=== PATIENT | female | born 1945 | race Caucasian/White ===

== ENCOUNTER 2017-10-07 10:32 | Outpatient (CLI) | payer MEDICARE | END 2017-10-07 10:33 | disposition home or self-care (01) | LOC: BICMAMMO 10:32 | PROVIDERS: ATTEND Obstetrics & Gynecology | DX: Z12.31 Encounter for screening mammogram for malignant neoplasm of breast (principal) | CPT/HCPCS: 77063; 77067 ==

== ENCOUNTER 2018-11-18 10:35 | Outpatient (CLI) | payer MEDICARE ==
--- NOTE | 2018-11-18 11:23 | RAD ---
LUMBAR SPINE 3 VIEWS: HISTORY: Sacroiliac, lower back pain. FINDINGS/IMPRESSION: There are mild degenerative changes in the lower lumbar spine. No fracture, subluxation, or bony monica truction is seen. The sacroiliac joints also demonstrate degenerative changes. There are vascular c alcifications. POS: [facility]
== END 2018-11-18 10:36 | disposition home or self-care (01) ==
LOC: RAD 10:35
PROVIDERS: ATTEND Family Medicine
DX: M46.1 Sacroiliitis, not elsewhere classified (principal); M47.816 Spondylosis without myelopathy or radiculopathy, lumbar region; I70.90 Unspecified atherosclerosis
CPT/HCPCS: 72100

== ENCOUNTER 2018-12-29 12:48 | Outpatient (CLI) | payer MEDICARE ==
--- NOTE | 2018-12-29 13:01 | RAD ---
EXAM: Chest 2 views: HISTORY: Left mid back pain COMPARISON: 03/14/2013 FINDINGS: There is a normal-sized cardiomediastinal silhouette. A cardiac monitoring device projects over the left chest wall. There is no evidence of consolidation, mass, or pleural effusion. The bones are unremarkable. IMPRESSION: No evidence of acute cardiopulmonary disease
== END 2018-12-29 12:49 | disposition home or self-care (01) ==
LOC: BICRAD 12:48
PROVIDERS: ATTEND Physician Assistant Medical
DX: M54.9 Dorsalgia, unspecified (principal)
CPT/HCPCS: 36415; 71046; 80053; 82150; 83690; 85025; 87086

== ENCOUNTER 2019-01-04 10:01 | Outpatient (CLI) | payer MEDICARE ==
--- NOTE | 2019-01-04 13:03 | ULT ---
RIGHT UPPER QUADRANT ULTRASOUND: HISTORY: Nausea. Diarrhea. FINDINGS: The liver demonstrates a homogeneous echotexture without focal mass or intrahepatic ductal dilatation . No gallstones, gallbladder wall thickening, or pericholecystic fluid is seen. The right kidney is normal. The common duct measures 2 mm in diameter. The visualized portions of the pancreas are unr emarkable. IMPRESSION: No significant abnormalities are identified. POS: [facility]
== END 2019-01-04 10:02 | disposition home or self-care (01) ==
LOC: ULT 10:01
PROVIDERS: ATTEND Physician Assistant Medical
DX: R19.7 Diarrhea, unspecified (principal); R11.0 Nausea; M54.9 Dorsalgia, unspecified
CPT/HCPCS: 76705

== ENCOUNTER 2020-08-15 12:27 | Outpatient (CLI) | payer MEDICARE | END 2020-08-15 12:28 | disposition home or self-care (01) | LOC: BICRAD 12:27 | PROVIDERS: ATTEND Internal Medicine Rheumatology | DX: M19.211 Secondary osteoarthritis, right shoulder (principal) ==

== ENCOUNTER 2020-08-28 10:03 | Outpatient (CLI) | payer MEDICARE | END 2020-08-28 10:04 | disposition home or self-care (01) | LOC: BICMAMMO 10:03 | PROVIDERS: ATTEND Family Medicine | DX: Z12.31 Encounter for screening mammogram for malignant neoplasm of breast (principal) | CPT/HCPCS: 77063; 77067 ==

== ENCOUNTER 2020-09-07 09:57 | Outpatient (CLI) | payer MEDICARE | END 2020-09-07 09:58 | disposition home or self-care (01) | LOC: BICMAMMO 09:57 | PROVIDERS: ATTEND Family Medicine | DX: R92.2 Inconclusive mammogram (principal) | CPT/HCPCS: 77065; G0279 ==

== ENCOUNTER 2020-09-28 10:35 | Outpatient (CLI) | payer MEDICARE | END 2020-09-28 10:36 | disposition home or self-care (01) | LOC: BICMAMMO 10:35 | PROVIDERS: ATTEND Internal Medicine Rheumatology | DX: Z13.820 Encounter for screening for osteoporosis (principal); Z78.0 Asymptomatic menopausal state | CPT/HCPCS: 77080 ==

== ENCOUNTER 2021-08-28 09:46 | Outpatient (CLI) | payer MEDICARE | END 2021-08-28 09:47 | disposition home or self-care (01) | LOC: TBSIIMAG 09:46 | PROVIDERS: ATTEND Neurological Surgery | DX: S22.081D Stable burst fracture of T11-T12 vertebra, subsequent encounter for fracture with routine healing (principal) | CPT/HCPCS: 72070 ==

== ENCOUNTER 2021-09-28 16:04 | Outpatient (CLI) | payer MEDICARE | END 2021-09-28 16:05 | disposition home or self-care (01) | LOC: BICCT 16:04 | PROVIDERS: ATTEND Neurological Surgery | DX: S22.081D Stable burst fracture of T11-T12 vertebra, subsequent encounter for fracture with routine healing (principal); S32.009D Unspecified fracture of unspecified lumbar vertebra, subsequent encounter for fracture with routine healing; M48.04 Spinal stenosis, thoracic region | CPT/HCPCS: 72128 ==

== ENCOUNTER 2021-10-23 13:47 | Outpatient (CLI) | payer MEDICARE | END 2021-10-23 13:48 | disposition home or self-care (01) | LOC: BICRAD 13:47 | PROVIDERS: ATTEND Neurological Surgery | DX: S22.081A Stable burst fracture of T11-T12 vertebra, initial encounter for closed fracture (principal) | CPT/HCPCS: 72072 ==

== ENCOUNTER 2021-11-02 10:13 | Outpatient (CLI) | payer MEDICARE | END 2021-11-02 10:14 | disposition home or self-care (01) | LOC: BICMAMMO 10:13 | PROVIDERS: ATTEND Family Medicine | DX: Z12.31 Encounter for screening mammogram for malignant neoplasm of breast (principal); M81.0 Age-related osteoporosis without current pathological fracture; M85.851 Other specified disorders of bone density and structure, right thigh | CPT/HCPCS: 77063; 77067; 77080 ==

== ENCOUNTER 2021-11-06 12:32 | Outpatient (CLI) | payer MEDICARE | END 2021-11-06 12:33 | disposition home or self-care (01) | LOC: CT 12:32 | PROVIDERS: ATTEND Neurological Surgery | DX: S22.081A Stable burst fracture of T11-T12 vertebra, initial encounter for closed fracture (principal); S32.011A Stable burst fracture of first lumbar vertebra, initial encounter for closed fracture | CPT/HCPCS: 72128 ==

== ENCOUNTER 2022-06-17 09:39 | Outpatient (CLI) | payer MEDICARE | END 2022-06-17 09:40 | disposition home or self-care (01) | LOC: RAD 09:39 | PROVIDERS: ATTEND Family Medicine | DX: R13.19 Other dysphagia (principal); R13.14 Dysphagia, pharyngoesophageal phase | CPT/HCPCS: 74220 ==

== ENCOUNTER 2022-07-25 12:30 | Outpatient (CLI) | payer MEDICARE | END 2022-07-25 12:31 | disposition home or self-care (01) | LOC: PET 12:30 | PROVIDERS: ATTEND Internal Medicine Hematology & Oncology | DX: C15.5 Malignant neoplasm of lower third of esophagus (principal) | CPT/HCPCS: 78815; A9552 ==

== ENCOUNTER 2022-12-06 09:03 | Outpatient (CLI) | payer MEDICARE ==
[2022-12-06] MEDS ORDERED: Iopamidol 370 76% 100 ML VIAL ONE (10:45)
== END 2022-12-06 09:04 | disposition home or self-care (01) ==
LOC: CT 09:03
PROVIDERS: ATTEND Physician Assistant
DX: C15.9 Malignant neoplasm of esophagus, unspecified (principal); K22.9 Disease of esophagus, unspecified; S22.081A Stable burst fracture of T11-T12 vertebra, initial encounter for closed fracture; J98.4 Other disorders of lung
CPT/HCPCS: 36415; 71260; 74177; 80053; 82565; 85025; 85610; 85730; 93005; 93010; 93306

== ENCOUNTER 2022-12-23 11:07 | Outpatient (CLI) | payer MEDICARE | END 2022-12-23 11:08 | disposition home or self-care (01) | LOC: RAD 11:07 | PROVIDERS: ATTEND Internal Medicine Hematology & Oncology | DX: R06.02 Shortness of breath (principal); R05.9 Cough, unspecified; R06.2 Wheezing; C15.5 Malignant neoplasm of lower third of esophagus; J90 Pleural effusion, not elsewhere classified; Z98.890 Other specified postprocedural states | CPT/HCPCS: 71046 ==

== ENCOUNTER 2023-01-23 08:39 | Emergency (ER) | payer MEDICARE ==
[2023-01-23] MEDS ORDERED: Ondansetron PF 4 MG/2 ML Vial ONE (09:20)
== END 2023-01-23 10:06 | disposition home or self-care (01) ==
LOC: ERS 08:39
DX: R11.10 Vomiting, unspecified (principal); E86.0 Dehydration; Z87.891 Personal history of nicotine dependence
CPT/HCPCS: 93005; 96361; 96374; J2405

== ENCOUNTER 2023-01-29 08:38 | Emergency (ER) | payer MEDICARE ==
[2023-01-29] MEDS ORDERED: Ondansetron PF 4 MG/2 ML Vial ONE (09:17)
[2023-01-29 09:31] LABS: #Basophils 0.1 thou/uL (0.0-0.2); #Eosinphils 0.1 thou/uL (0.0-0.7); #Monocytes 0.7 thou/uL (0.11-0.59); #Neutrophils 20.1 thou/uL (1.40-6.50); %Basophils 0.3 % (0.0-1.0); %Eosinophils 0.5 % (0.0-10.0); %Monocytes 3.2 % (0.0-10.0); %Neutrophils 90.5 % (42.0-75.0); Hemoglobin 12.8 g/dL (12.0-16.0); Mean Corpuscular HGB CONC 32.8 g/dL (32.0-36.0); Mean Corpuscular Hemoglobin 29.5 pg (27.0-31.0); Mean Corpuscular Volume 89.9 fl (78.0-98.0); Mean Platelet Volume 11.2 fL (7.4-10.4); Platelet Count 375 10x3/uL (130-400); RBC Distribution Width 13.8 % (11.5-14.5); Red Blood Cell (RBC) Count 4.34 mill/uL (4.20-5.40); White Blood Cell (WBC) Count 22.2 10x3/uL (4.8-10.8)
[2023-01-29 09:55] LABS: ALT (SGPT) 15 U/L (8-55); AST (SGOT) 18 U/L (5-34); Albumin 4.3 g/dL (3.4-4.8); Alkaline Phosphatase 100 U/L (40-110); Anion Gap 18 mmol/L (10-20); BUN (Urea Nitrogen) 17 mg/dL (9.8-20.1); Bilirubin, Total 0.4 mg/dL (0.2-1.2); Calc. Creatinine Clearance 0 mL/min (70-130); Calcium 9.9 mg/dL (7.8-10.44); Carbon Dioxide 22 mmol/L (23-31); Chloride 102 mmol/L (98-107); Estimated GFR 58; Globulin 3.4 g/dL (2.4-3.5); Glucose 130 mg/dL (83-110); Lipase 24 U/L (8-78); Potassium 2.8 mmol/L (3.5-5.1); Protein, Total 7.7 g/dL (5.8-8.1); Sodium 139 mmol/L (136-145)
[2023-01-29] MEDS ORDERED: Iopamidol-370 76% 500 ML MDV (1 ML CHARGE) ONE (09:57)
[2023-01-29] MEDS ORDERED: Morphine 4 MG/ML VIAL ONE (10:39)
[2023-01-29] MEDS ORDERED: LevoFLOXacin 500 MG TAB ONE (11:57)
[2023-01-29] MEDS ORDERED: LevoFLOXacin 250 MG TAB ONE (11:57)
[2023-01-29 12:21] LABS: Bacteria/HPF None Seen HPF (None Seen); Bilirubin Negative (Negative); Blood, Urine Negative (Negative); CAUTI Indications for Culture Pelvic or flank pain; Clarity Clear (Clear); Glucose, Urine (Dipstick) Normal (Negative); Ketone, Urine Trace mg/dL (Negative); Leukocyte Negative Leu/uL (Negative); Nitrite Negative (Negative); Protein, Urine (Dipstick) Negative (Neg-Trace); RBC/HPF 0-3 HPF (0-3); Specific Gravity, Urine 1.027 (1.002-1.036); Squamous Epithelial None Seen HPF (0-3); Urobilinogen Normal mg/dL (Less than 2); WBC/HPF 0-3 HPF (0-3); pH, Urine 6.5 (5.0-9.0)
[2023-01-29 12:23] LABS: Urine Culture Reflex No No
== END 2023-01-29 12:39 | disposition home or self-care (01) ==
LOC: ERS 08:38
DX: K52.9 Noninfective gastroenteritis and colitis, unspecified (principal); Z87.891 Personal history of nicotine dependence
CPT/HCPCS: 36415; 74177; 80053; 81001; 83605; 83690; 85025; 87040; 87086; 96361; 96374; 96375; J2270; J2405; Q9967

== ENCOUNTER 2023-03-06 15:11 | Outpatient (CLI) | payer MEDICARE | END 2023-03-06 15:12 | disposition home or self-care (01) | LOC: BICRAD 15:11 | PROVIDERS: ATTEND Physician Assistant | DX: S22.069A Unspecified fracture of T7-T8 vertebra, initial encounter for closed fracture (principal); M43.8X4 Other specified deforming dorsopathies, thoracic region | CPT/HCPCS: 72070 ==

== ENCOUNTER 2023-03-18 13:11 | Emergency (ER) | payer MEDICARE ==
[~2023-03-18 13:11] MED LIST: GASTROGRAFIN 30 ML BOT ONE
== END 2023-03-18 16:57 | disposition home or self-care (01) ==
LOC: ERS 13:11
DX: K94.23 Gastrostomy malfunction (principal); Z87.891 Personal history of nicotine dependence
CPT/HCPCS: 74018; Q9963

== ENCOUNTER 2023-06-15 12:14 | Emergency (ER) | payer MEDICARE ==
[2023-06-15 13:04] LABS: #Basophils 0.1 thou/uL (0.0-0.2); #Eosinphils 0.2 thou/uL (0.0-0.7); #Monocytes 0.7 thou/uL (0.11-0.59); #Neutrophils 6.1 thou/uL (1.40-6.50); %Basophils 0.8 % (0.0-1.0); %Eosinophils 2.5 % (0.0-10.0); %Lymphocytes 16.7 % (21.0-51.0); %Neutrophils 71.5 % (42.0-75.0); Hematocrit 35.6 % (36.0-47.0); Hemoglobin 11.9 g/dL (12.0-16.0); Mean Corpuscular HGB CONC 33.4 g/dL (32.0-36.0); Mean Corpuscular Hemoglobin 30.2 pg (27.0-31.0); Mean Corpuscular Volume 90.4 fl (78.0-98.0); Mean Platelet Volume 10.6 fL (7.4-10.4); Platelet Count 252 10x3/uL (130-400); RBC Distribution Width 15.5 % (11.5-14.5); Red Blood Cell (RBC) Count 3.94 mill/uL (4.20-5.40); White Blood Cell (WBC) Count 8.5 10x3/uL (4.8-10.8)
[2023-06-15 13:25] LABS: ALT (SGPT) 16 U/L (8-55); AST (SGOT) 21 U/L (5-34); Alkaline Phosphatase 82 U/L (40-110); Anion Gap 15 mmol/L (10-20); BUN (Urea Nitrogen) 25 mg/dL (9.8-20.1); Bilirubin, Total 0.7 mg/dL (0.2-1.2); Calc. Creatinine Clearance 0 mL/min (70-130); Calcium 9.3 mg/dL (7.8-10.44); Carbon Dioxide 17 mmol/L (23-31); Chloride 104 mmol/L (98-107); Estimated GFR 37; Globulin 2.9 g/dL (2.4-3.5); Glucose 97 mg/dL (83-110); Protein, Total 6.9 g/dL (5.8-8.1); Sodium 133 mmol/L (136-145)
[2023-06-15] MEDS ORDERED: Morphine 4 MG/ML VIAL ONE (13:29)
[2023-06-15] MEDS ORDERED: Potassium Chloride 20 MEQ TAB ONE (14:59)
[2023-06-15] MEDS ORDERED: HYDROcodone/Acetaminophen 5/325 mg Tablet ONE (15:00)
[2023-06-15] MEDS ORDERED: Aspirin Chewable 81 MG TAB ONE ×2 (15:33→15:38)
[2023-06-15 15:53] LABS: Bacteria/HPF 1+ HPF (None Seen); Bilirubin Negative (Negative); Blood, Urine Negative (Negative); CAUTI Indications for Culture Pelvic or flank pain; Clarity Clear (Clear); Glucose, Urine (Dipstick) Greater than 1000 mg/dL (Negative); Ketone, Urine Negative (Negative); Leukocyte Negative Leu/uL (Negative); Nitrite Negative (Negative); Protein, Urine (Dipstick) 10 mg/dL (Neg-Trace); RBC/HPF 0-3 HPF (0-3); Squamous Epithelial 0-3 HPF (0-3); Urobilinogen Normal mg/dL (Less than 2); WBC/HPF 0-3 HPF (0-3); pH, Urine 5.5 (5.0-9.0)
[2023-06-15 15:55] LABS: Urine Culture Reflex No No
[2023-06-15 16:14] LABS: Troponin I Less than 0.010 ng/mL (< 0.028)
[2023-06-15] MEDS ORDERED: Ketorolac Tromethamine 30 MG (1 mL) VIAL ONE (17:31)
== END 2023-06-15 21:23 | disposition home or self-care (01) ==
LOC: ERS 12:14
DX: S32.501A Unspecified fracture of right pubis, initial encounter for closed fracture (principal); W01.0XXA Fall on same level from slipping, tripping and stumbling without subsequent striking against object, initial encounter; Z87.891 Personal history of nicotine dependence
CPT/HCPCS: 36415; 70450; 71045; 72125; 74176; 80053; 81001; 84484; 85025; 93005; 93010; 96361; 96374; 96375; J1885; J2270

== ENCOUNTER 2023-08-05 11:13 | Emergency (ER) | payer MEDICARE ==
[2023-08-05 11:58] LABS: #Basophils 0.1 thou/uL (0.0-0.2); #Eosinphils 0.2 thou/uL (0.0-0.7); #Monocytes 0.6 thou/uL (0.11-0.59); #Neutrophils 4.1 thou/uL (1.40-6.50); %Basophils 1.1 % (0.0-1.0); %Eosinophils 3.5 % (0.0-10.0); %Lymphocytes 25.4 % (21.0-51.0); %Monocytes 8.6 % (0.0-10.0); %Neutrophils 60.9 % (42.0-75.0); Hematocrit 33.9 % (36.0-47.0); Hemoglobin 11.1 g/dL (12.0-16.0); Mean Corpuscular HGB CONC 32.7 g/dL (32.0-36.0); Mean Corpuscular Hemoglobin 29.8 pg (27.0-31.0); Mean Corpuscular Volume 90.9 fl (78.0-98.0); Mean Platelet Volume 10.3 fL (7.4-10.4); Platelet Count 348 10x3/uL (130-400); RBC Distribution Width 17.2 % (11.5-14.5); Red Blood Cell (RBC) Count 3.73 mill/uL (4.20-5.40); White Blood Cell (WBC) Count 6.7 10x3/uL (4.8-10.8)
[2023-08-05 12:09] LABS: ALT (SGPT) 8 U/L (8-55); AST (SGOT) 12 U/L (5-34); Albumin 3.4 g/dL (3.4-4.8); Alkaline Phosphatase 101 U/L (40-110); Anion Gap 13 mmol/L (10-20); BUN (Urea Nitrogen) 11 mg/dL (9.8-20.1); Bilirubin, Total 0.5 mg/dL (0.2-1.2); Calc. Creatinine Clearance 0 mL/min (70-130); Calcium 8.9 mg/dL (7.8-10.44); Carbon Dioxide 22 mmol/L (23-31); Chloride 108 mmol/L (98-107); Estimated GFR 58; Globulin 2.6 g/dL (2.4-3.5); Glucose 93 mg/dL (83-110); Potassium 2.9 mmol/L (3.5-5.1); Sodium 140 mmol/L (136-145)
[2023-08-05 12:12] LABS: Troponin I 0.024 ng/mL (< 0.028)
== END 2023-08-05 12:57 | disposition home or self-care (01) ==
LOC: ERS 11:13
DX: R07.89 Other chest pain (principal); E87.6 Hypokalemia; I25.2 Old myocardial infarction; R54 Age-related physical debility; Z87.891 Personal history of nicotine dependence; Z86.718 Personal history of other venous thrombosis and embolism; Z86.711 Personal history of pulmonary embolism; Z79.01 Long term (current) use of anticoagulants
CPT/HCPCS: 36416; 71045; 80053; 83880; 84484; 85025; 93005

== ENCOUNTER 2024-03-25 14:29 | Outpatient (CLI) | payer MEDICARE | END 2024-03-25 14:30 | disposition home or self-care (01) | LOC: SCSRAD 14:29 | PROVIDERS: ATTEND Family Medicine | DX: S00.83XA Contusion of other part of head, initial encounter (principal) | CPT/HCPCS: 70150 ==

== ENCOUNTER 2024-06-11 18:04 | Emergency (ER) | payer MEDICARE ==
[2024-06-11] MEDS ORDERED: Lidocaine 1% w/Epinephrine 1:100K 20 ML VIAL ONE (18:56)
[2024-06-11 19:10] LABS: #Basophils 0.03 10x3/uL (0.0-0.2); %Basophils 0.2 % (0.0-1.0); %Eosinophils 0.3 % (0.0-10.0); %Lymphocytes 10.3 % (21.0-51.0); %Monocytes 7.4 % (0.0-10.0); %Neutrophils 80.9 % (42.0-75.0); Hematocrit 39.7 % (36.0-47.0); Hemoglobin 13.2 g/dL (12.0-16.0); Mean Corpuscular HGB CONC 33.2 g/dL (32.0-36.0); Mean Corpuscular Hemoglobin 29.5 pg (27.0-31.0); Mean Corpuscular Volume 88.6 fL (78.0-98.0); Mean Platelet Volume 11.3 fL (7.4-10.4); Platelet Count 381 10x3/uL (130-400); RBC Distribution Width 17.2 % (11.5-14.5); Red Blood Cell (RBC) Count 4.48 mill/uL (4.20-5.40)
[2024-06-11 19:35] LABS: ALT (SGPT) 14 U/L (8-55); AST (SGOT) 20 U/L (5-34); Albumin 3.9 g/dL (3.4-4.8); Alkaline Phosphatase 78 U/L (40-110); Anion Gap 20 mmol/L (10-20); BUN (Urea Nitrogen) 28 mg/dL (9.8-20.1); Bilirubin, Total 0.3 mg/dL (0.2-1.2); Calc. Creatinine Clearance 0 mL/min (70-130); Calcium 9.6 mg/dL (7.8-10.44); Carbon Dioxide 18 mmol/L (23-31); Chloride 102 mmol/L (98-107); Estimated GFR 31; Globulin 3.5 g/dL (2.4-3.5); Glucose 135 mg/dL (83-110); Protein, Total 7.4 g/dL (5.8-8.1); Sodium 135 mmol/L (136-145)
[2024-06-11 20:17] LABS: Troponin I Less than 0.010 ng/mL (< 0.028)
== END 2024-06-11 20:25 | disposition home or self-care (01) ==
LOC: ERS 18:04
DX: S01.01XA Laceration without foreign body of scalp, initial encounter (principal); E86.0 Dehydration; F17.210 Nicotine dependence, cigarettes, uncomplicated; W19.XXXA Unspecified fall, initial encounter
CPT/HCPCS: 36415; 70450; 80053; 84484; 85025

== ENCOUNTER 2024-12-19 16:28 | Inpatient (IN) | payer MEDICARE ==
[~2024-12-19 16:28] MED LIST changes: -GASTROGRAFIN 30 ML BOT ONE; +Iopamidol 370 76% 100 ML VIAL ONE
[2024-12-19 16:40] LABS: Analyzer IN Cardio ER; Base Excess (BEa) -17.3 mEq/L (-2.0 to +3.0); CO2 Tension 41.7 mmHg (35.0-45.0); Calcium, Ionized (arterial) 1.39 mmol/L (1.12-1.30); Hematocrit-ABG 27 % (36.0-47.0); Hemoglobin (Hb) 9.3 g/dL (12.0-16.0); O2 Tension (PaO2), arterial 327.4 mmHg (> 70.0); Potassium - ABG Lab 4.13 mmol/L (3.70-5.30)
[2024-12-19 16:41] LABS: ALV-art Gradient 328.475 mmHg (0-20); Actual Bicarbonate (HCO3a) 11.8 mEq/L (22-28); Puncture Site A; pH, Arterial 7.071 (7.35-7.45)
[2024-12-19] MEDS ORDERED: Etomidate 40 MG (20 mL) VIAL ONE (16:50)
[2024-12-19] MEDS ORDERED: Rocuronium Bromide 10 MG/ML (10ML VIAL) ONE (16:50)
[2024-12-19 16:56] LABS: INR-International Normal Ratio 1.4; Prothrombin Time 17.5 sec (12.0-14.7)
[2024-12-19 16:57] LABS: PTT 32.7 sec (22.9-36.1)
[2024-12-19 17:02] LABS: Acetaminophen Less than 10 mcg/mL (Less than 10); Salicylate Less than 8.0 mg/dL (Less than 8.0)
[2024-12-19 17:03] LABS: Troponin I Less than 0.010 ng/mL (< 0.028)
[2024-12-19 17:05] LABS: ALT (SGPT) 103 U/L (Less than 34); AST (SGOT) 277 U/L (11-34); Albumin 3.7 g/dL (3.1-4.5); Alkaline Phosphatase 115 U/L (40-110); Anion Gap 22 mmol/L (10-20); BUN (Urea Nitrogen) 29 mg/dL (9.8-20.1); Bilirubin, Total 0.2 mg/dL (0.3-1.2); Calc. Creatinine Clearance 0 mL/min (70-130); Calcium 9.3 mg/dL (7.8-10.44); Carbon Dioxide 8 mmol/L (23-31); Chloride 104 mmol/L (98-107); Globulin 2.7 g/dL (2.4-3.5); Glucose 197 mg/dL (83-110); Potassium 4.3 mmol/L (3.5-5.1); Sodium 130 mmol/L (136-145)
[2024-12-19 17:07] LABS: Hematocrit 28.3 % (36.0-47.0); Hemoglobin 8.6 g/dL (12.0-16.0); Mean Corpuscular Hemoglobin 27.1 pg (27.0-31.0); Mean Corpuscular Volume 89.3 fL (78.0-98.0); Platelet Count 361 10x3/uL (130-400); Red Blood Cell (RBC) Count 3.17 mill/uL (4.20-5.40); White Blood Cell (WBC) Count 13.39 10x3/uL (4.8-10.8)
[2024-12-19 17:10] LABS: Anisocytosis SLIGHT = 6-15 cells HPF (0-5); Ovalocytes SLIGHT = 2-5 cells HPF (0-1); Platelet Adequacy Comment Platelets Normal; Poikilocytosis SLIGHT = 6-15 cells HPF (0-5); Polychromasia SLIGHT = 2-3 cells HPF (0-2); Schistocytes SLIGHT = 2-5 cells HPF (0-1)
[2024-12-19 17:28] LABS: Bacteria/HPF None Seen HPF (None Seen); CAUTI Indications for Culture Dysuria,urgency,freq; Glucose, Urine (Dipstick) 70 mg/dL (Negative); Leukocyte Negative Leu/uL (Negative); Protein, Urine (Dipstick) 10 mg/dL (Neg-Trace); RBC/HPF 0-3 HPF (0-3); Specific Gravity, Urine 1.015 (1.002-1.036); WBC/HPF 0-3 HPF (0-3)
[2024-12-19 17:30] LABS: Urine Culture Reflex No No
[2024-12-19 17:35] LABS: Cocaine Metabolite Screen Negative (Negative); THC/Cannabinoid Screen Negative (Negative); Tricyclic Screen Negative (Negative)
[2024-12-19] MEDS ORDERED: Glucagon 1 MG/ML KIT IM PRN (18:45)
[2024-12-19] MEDS ORDERED: Acetaminophen 325 MG TAB PO PRN (18:45)
[2024-12-19] MEDS ORDERED: Ondansetron PF 4 MG/2 ML Vial IVP PRN (18:45)
[2024-12-19] MEDS ORDERED: Dextrose 50% Abboject 50 ML SYRINGE SLOW IVP PRN (18:45)
[2024-12-19] MEDS ORDERED: Acetaminophen/Codeine 30-300mg Tablet PO PRN (18:45)
[2024-12-19] MEDS ORDERED: hydrALAZINE 20 MG/ML VIAL SLOW IVP PRN (18:45)
[2024-12-19 18:49] LABS: Analyzer IN Cardio ER; Base Excess (BEa) -11.1 mEq/L (-2.0 to +3.0); CO2 Tension 28.1 mmHg (35.0-45.0); Calcium, Ionized (arterial) 1.24 mmol/L (1.12-1.30); Hematocrit-ABG 23 % (36.0-47.0); Hemoglobin (Hb) 7.9 g/dL (12.0-16.0); O2 Tension (PaO2), arterial 87.6 mmHg (> 70.0); Potassium - ABG Lab 4.17 mmol/L (3.70-5.30); pH, Arterial 7.313 (7.35-7.45)
[2024-12-19 18:50] LABS: ALV-art Gradient 76.915 mmHg (0-20); Actual Bicarbonate (HCO3a) 13.9 mEq/L (22-28); Puncture Site RR
[2024-12-19] MEDS ORDERED: LevoFLOXacin 750 mg/D5W 150 ml Premix Bag ONE (18:55)
[2024-12-19 20:45] VITALS: BMI 18.9
[2024-12-19] MEDS: Mupirocin 1 GM TUBE NASAL DECOLONIZATION TP SCH (23:36)
[2024-12-20 03:20] LABS: #Basophils 0.03 10x3/uL (0.0-0.2); #Eosinophils 0.04 10x3/uL (0.0-0.7); #Monocytes 0.49 10x3/uL (0.11-0.59); #Neutrophils 8.44 10x3/uL (1.40-6.50); %Basophils 0.3 % (0.0-1.0); %Eosinophils 0.4 % (0.0-10.0); %Lymphocytes 9.3 % (21.0-51.0); %Monocytes 4.9 % (0.0-10.0); %Neutrophils 84.4 % (42.0-75.0); Hematocrit 23.7 % (36.0-47.0); Hemoglobin 7.6 g/dL (12.0-16.0); Mean Corpuscular Hemoglobin 27.2 pg (27.0-31.0); Mean Corpuscular Volume 84.9 fL (78.0-98.0); Platelet Count 250 10x3/uL (130-400); Red Blood Cell (RBC) Count 2.79 mill/uL (4.20-5.40); White Blood Cell (WBC) Count 10.00 10x3/uL (4.8-10.8)
[2024-12-20 06:26] LABS: ALT (SGPT) 71 U/L (Less than 34); AST (SGOT) 137 U/L (11-34); Albumin 3.2 g/dL (3.1-4.5); Alkaline Phosphatase 93 U/L (40-110); Anion Gap 15 mmol/L (10-20); BUN (Urea Nitrogen) 24 mg/dL (9.8-20.1); Bilirubin, Total 0.2 mg/dL (0.3-1.2); Calc. Creatinine Clearance 32 mL/min (70-130); Calcium 8.6 mg/dL (7.8-10.44); Carbon Dioxide 16 mmol/L (23-31); Chloride 111 mmol/L (98-107); Globulin 2.6 g/dL (2.4-3.5); Glucose 102 mg/dL (83-110); Potassium 4.3 mmol/L (3.5-5.1); Sodium 138 mmol/L (136-145)
[2024-12-20] MEDS: Mupirocin 1 GM TUBE NASAL DECOLOIZATION TP SCH (08:06)
[2024-12-20] MEDS: Apixaban 5 MG TAB PO SCH (11:07)
[2024-12-20 12:20] VITALS: TEMP 98.2
== END 2024-12-20 13:53 | disposition home or self-care (01) | DRG 923 ==
LOC: EEVIPCON 16:28 → ERS 16:28 → CCU 18:45
PROVIDERS: ADMIT Surgery; ATTEND Surgery
PROC: 0T9B70Z Drainage of Bladder with Drainage Device, Via Natural or Artificial Opening (ICD-10-PCS; principal; 2024-12-19)
DX: T75.1XXA Unspecified effects of drowning and nonfatal submersion, initial encounter (principal); E87.29 Other acidosis; I50.22 Chronic systolic (congestive) heart failure; N17.9 Acute kidney failure, unspecified; Z66 Do not resuscitate; Z88.0 Allergy status to penicillin; Z79.01 Long term (current) use of anticoagulants; Z79.899 Other long term (current) drug therapy; Z98.890 Other specified postprocedural states; F41.9 Anxiety disorder, unspecified; F32.A Depression, unspecified; Z87.891 Personal history of nicotine dependence; I25.2 Old myocardial infarction; I11.0 Hypertensive heart disease with heart failure; F10.129 Alcohol abuse with intoxication, unspecified; J44.9 Chronic obstructive pulmonary disease, unspecified
CPT/HCPCS: 36415; 51702; 70450; 71045; 71260; 72125; 74177; 80048; 80053; 80061; 80306; 80307; 81001; 82805; 83540; 83550; 83605; 83880; 84443; 84484; 85025; 85610; 85730; 86850; 86900; 86901; 93005; 93306; 93880; 94660; 96365; G0390; J1956; Q9967